=== PATIENT | female | born 1960 | race African-American/Black ===

== ENCOUNTER 2021-12-20 13:30 | Emergency (ER) | payer OTHER, SELFPAY ==
[2021-12-20 13:42] VITALS: BP 140/84; PULSE 75; RESP 18; TEMP 36.4; O2SAT 100
--- NOTE | 2021-12-20 13:42 | ED.URI ---
HPI - URI/Sore Throat General Chief Complaint: Upper Respiratory Infection Stated Complaint: Ears Irritation, Headache Time Seen by Provider: 12/20/21 13:43 Source: patient and RN notes reviewed Mode of arrival: ambulatory Limitations: no limitations History of Present Illness HPI Narrative: 61-year-old female presents to the [facility] with 1 week of a frontal headache, nasal congestion, bilateral ear pain/pressure. Has tried Coricidin HBP, Vicks, DayQuil and NyQuil with no relief the. Skin tears. No cough or chest pain. Denies Abdominal pain. Related Data Home Medications Medication Instructions Recorded Confirmed clonidine HCl 0.3 mg tablet 0.3 mg PO BID 12/20/21 12/20/21 lisinopril 20 2 tablet PO DAILY 12/20/21 12/20/21 mg-hydrochlorothiazide 12.5 mg tablet metoprolol succinate 50 mg 50 mg PO DAILY 12/20/21 12/20/21 tablet,extended release 24 hr Allergies Allergy/AdvReac Type Severity Reaction Status Date / Time Sulfa (Sulfonamide Allergy Mild Other Verified 12/20/21 13:53 Antibiotics) Review of Systems Review of Systems: All systems reviewed & are unremarkable except as noted in HPI and below Constitutional: Constitutional: Reports no additional constitutional complaints, Denies chills and Denies fever(s) Eyes: Eyes: Reports no additional eye complaints ENT: Reports as per HPI Cardiovascular: Cardiovascular: Reports no additional cardiovascular complaints Respiratory: Respiratory: Reports no additional respiratory complaints Gastrointestinal: Gastrointestinal: Reports no additional gastrointestinal complaints Musculoskeletal: Musculoskeletal: Reports no additional musculoskeletal complaints Integumentary/Breasts: Skin/Breast: Reports system reviewed and no additional complaints, except as docu Neurologic: Reports system reviewed and no additional complaints, except as documented Psychiatric: Psychiatric: Reports no additional psychiatric complaints Allergic/Immunologic: Allergic/Immunologic: Reports no additional allergic/immunologic complaints PMFSH Past Medical History Medical History (Updated 12/21/21 @ 11:07 by Veronica Ibarra APRN) History of high blood pressure Comments At the time of my signature, I reviewed and agree with the nursing past medical, surgical, social, and family history. There is no relevant family history pertinent to the patient complaint. Exam Const: General: healthy appearing, no acute distress, alert and well nourished Nutritional Appearance: well nourished Orientation/consciousness: patient oriented x3 Limitations: no limitations HENMT: Head: normal to inspection Ears: external ears normal, EAC's normal and TM abnormal bulging bilateral and with fluid behind the TM bilateral; not erythematous and not perforated Face/Nose/Sinus: Normal external nose present and Normal nares present Face and sinus: normal facial exam Mouth: Yes Normal oral and palatal mucosa present, Yes lip normal and Yes moist mucous membranes Teeth and gingiva: dentition normal Throat: posterior oropharynx normal and uvula midline Eyes: General: appearance normal, both eyes and all related structures Conjunctivae: conjunctivae normal Pupils: Equal, round and reactive pupils present Neck: Neck: normal visual inspection, no lymphadenopathy and no meningeal signs Chest: Chest palpation & inspection: normal inspection of the chest Resp: Effort & Inspection: normal respiratory effort and no use of accessory muscles Auscultation: clear to auscultation bilaterally, no crackles, no rales, no rhonchi and no wheezes Cardio: Rate: regular rate Rhythm: regular rhythm Skin: General skin exam: normal color Rashes: no rashes Wounds: no wounds Neuro: General: patient oriented x3, moves all extremities, no meningeal signs and no focal motor deficits Cranial nerves: Yes Equal, round and reactive pupils present Speech: normal speech Gait exam (Neuro): Normal gait present Extrem:
== END 2021-12-20 14:00 | disposition home or self-care (01) ==
PROVIDERS: Emergency Provider Nurse Practitioner; PCP Internal Medicine
DX: H65.03 Acute serous otitis media, bilateral (principal); J06.9 Acute upper respiratory infection, unspecified; I10 Essential (primary) hypertension
CPT/HCPCS: 99213; G0463

== ENCOUNTER 2024-01-16 12:54 | Emergency (ER) | payer BC, SELFPAY ==
--- NOTE | ~2024-01-16 | XR_ITS ---
EXAMINATION: XR hand RT min 3V DATE: 01/16/2024 13:23 INDICATION: Right hand fifth digit injury and pain. TECHNIQUE: 3 views of right hand were obtained. COMPARISON: None. FINDINGS: Alignment is normal. No fracture. There is mild osteoarthritis of many of the metacarpophal angeal joints and interphalangeal joints. There is severe osteoarthritis of first interphalangeal caty nt and third-fifth distal interphalangeal joints and moderate osteoarthritis of second distal interph alangeal joint. IMPRESSION: 1. Polyarticular osteoarthritis. Reviewed, dictated and finalized at location A. [employer]
[2024-01-16 13:07] VITALS: BP 151/92; PULSE 74; RESP 19; TEMP 36.5; O2SAT 97
--- NOTE | 2024-01-16 13:17 | ED.UPPEXIN ---
HPI - Extremity Injury (Upper) General Chief Complaint: Extremity Injury, Upper Stated Complaint: right pinky finger injury Time Seen by Provider: 01/16/24 14:08 Source: patient, RN notes reviewed and old records reviewed Mode of arrival: ambulatory Limitations: no limitations History of Present Illness HPI narrative: Patient presents with complaints of right 5th finger pain for 1-2 weeks. She reports that she fell on to the outstretched finger and hyperextended it, has had pain ever since. She has been taking Tylenol Arthritis, meloxicam and gabapentin as usual for her pain. She denies other injury and trauma. She retains full range of motion of the affected digit. She voices no other concerns or complaints at this time Related Data Home Medications Medication Instructions Recorded Confirmed clonidine HCl 0.3 mg tablet 0.3 mg PO BID 12/20/21 01/16/24 lisinopril 20 2 tablet PO DAILY 12/20/21 01/16/24 mg-hydrochlorothiazide 12.5 mg tablet metoprolol succinate 50 mg 50 mg PO DAILY 12/20/21 01/16/24 tablet,extended release 24 hr amlodipine 5 mg tablet 5 mg PO DAILY 01/16/24 01/16/24 gabapentin 300 mg capsule 300 mg PO BID 01/16/24 01/16/24 meloxicam 15 mg tablet 15 mg PO DAILY 01/16/24 01/16/24 rosuvastatin 10 mg tablet 50 mg PO DAILY 01/16/24 01/16/24 Allergies Allergy/AdvReac Type Severity Reaction Status Date / Time Sulfa (Sulfonamide Allergy Mild Other Verified 01/16/24 13:18 Antibiotics) Review of Systems Review of Systems: All systems reviewed & are unremarkable except as noted in HPI and below Constitutional: Constitutional: Reports no additional constitutional complaints ENT: Reports system reviewed and no additional complaints, except as documented Cardiovascular: Cardiovascular: Reports no additional cardiovascular complaints Respiratory: Respiratory: Reports no additional respiratory complaints Gastrointestinal: Gastrointestinal: Reports no additional gastrointestinal complaints Musculoskeletal: Musculoskeletal: Reports no additional musculoskeletal complaints and Reports as per HPI [facility] Past Medical History Medical History History of high blood pressure Comments At the time of my signature, I reviewed and agree with the nursing past medical, surgical, social, and family history. There is no relevant family history pertinent to the patient complaint. Exam Const: General: cooperative, no acute distress, alert and awake Orientation/consciousness: oriented to person, oriented to place and oriented to time HENMT: Head: normal to inspection Resp: Effort & Inspection: normal respiratory effort and able to speak in complete sentences Auscultation: clear to auscultation bilaterally, no crackles, no rales, no rhonchi and no wheezes Cardio: Palpation: normal PMI Rate: regular rate Rhythm: regular rhythm Heart sounds: S1 normal heart sound present and S2 normal heart sound present Neuro: General: oriented to person, oriented to place and oriented to time Cranial nerves: Yes CN's II-XII intact bilaterally Extrem: Right upper extremity: Extremity exam: right hand normal to inspection, normal capillary refill, neuromotor exam normal, neurosensory exam abnormal and tenderness of the 5th digit Psych: Appearance: grossly normal Thought process: Normal thought process present Insight: Good insight present (Psych) Judgement: Good judgement present (Psych) Course Course Level of Care: Express Care Visit Vital Signs Vital signs: Vital Signs Temperature 97.7 F 01/16/24 13:07 Pulse Rate 74 01/16/24 13:07 Respiratory Rate 19 01/16/24 13:07 Blood Pressure 151/92 H 01/16/24 13:07 Pulse Oximetry 97 01/16/24 13:07 Oxygen Delivery Room Air 01/16/24 13:07 Temperature 97.7 F 01/16/24 13:07 Pulse Rate 74 01/16/24 13:07 Respiratory Rate 19 01/16/24 13:07 Blood Pressure 151/92 H 01/16/24 13:07 Pulse Oximetry 97 01/16/24 13:07 Oxygen Delivery Room Air 01/16/24 13:07 Reviewed MDM - Extremity Injury (Upper) MDM Narrative Medical decision making narrative: Patient with history of injury to right 5th finger, x-ray shows arthritis with no acute process. Patient already taking appropriate medications. She is advised to follow with primary care provider. Emergency department for new or worse symptoms. Discharge instructions reviewed with patient, as well as provided in writing per nursing staff. The instructions also include specific and strict return/GO TO THE ER as well as f/u information. All questions have been answered, and the patient deny any further questions with discharge and discharge plan. Some parts of this dictation were generated by voice recognition software and may contain typographical and/or grammatical inaccuracies. Differential Diagnosis Differential diagnosis: Likely sprain and strain of wrist, finger sprain and fracture of hand Medical Records Attestation: I reviewed the patient's medical records. Imaging Data Attestation: I personally reviewed and interpreted this imaging study as follows: My impression: no acute findings Radiologist's impression: [facility] [address] [place] [address] XRay Report Signed Patient: Pedro Madrigal : 1960 MR#: [id number] Age: 63 Acct:[id number] Loc: [facility] ADM Date: 01/16/24Attending Dr: Ordering Physician: Ashlie Gonzalez FNP Date of Service: 01/16/24 Procedure(s): XR hand RT min 3V Accession Number(s): [id number] cc: Ashlie Gonzalez FNP; Ranjana, Dex MESSER~ EXAMINATION: XR hand RT min 3V DATE: 01/16/2024 13:23 INDICATION: Right hand fifth digit injury and pain. TECHNIQUE: 3 views of right hand were obtained. COMPARISON: None. FINDINGS: Alignment is normal. No fracture. There is mild osteoarthritis of many of the metacarpophalangeal joints and interphalangeal joints. There is severe osteoarthritis of first interphalangeal joint and third-fifth distal interphalangeal joints and moderate osteoarthritis of second distal interphalangeal joint. IMPRESSION: 1. Polyarticular osteoarthritis. Reviewed, dictated and finalized at location A. [employer] Dictated By: Morris Chris MD 01/16/24 1325 Signed By: <Electronically signed by Morris Chris MD in OV> Discharge Plan Discharge Clinical Impression: Finger pain, right Patient Disposition: Home, Self-Care Condition: Stable Instructions: Antibiotic Form, P.R.I.C.E. Treatment (ED) Additional Instructions: Take medications as prescribed. Follow with primary care provider. Emergency department for new or worse symptoms Prescriptions: No Action meloxicam 15 mg tablet 15 mg PO DAILY amlodipine 5 mg tablet 5 mg PO DAILY gabapentin 300 mg capsule 300 mg PO BID rosuvastatin 10 mg tablet 50 mg PO DAILY lisinopril-hydrochlorothiazide 20-12.5 mg tablet 2 tablet PO DAILY metoprolol succinate 50 mg tablet extended release 24 hr 50 mg PO DAILY clonidine HCl 0.3 mg tablet 0.3 mg PO BID loratadine 10 mg tablet 10 mg PO DAILY Qty: 30 0RF Flonase Sensimist 27.5 mcg/actuation spray,suspension 2 spray intranasal DAILY Qty: 5.9 0RF Rx Instructions: into each nostril Follow-up/Referrals: Ranjana,MD Dex [Primary Care Provider] - 2 Weeks Time of Disposition: 14:22
== END 2024-01-16 14:28 | disposition home or self-care (01) ==
PROVIDERS: Emergency Provider Nurse Practitioner Family; PCP Internal Medicine
DX: M79.644 Pain in right finger(s) (principal); I10 Essential (primary) hypertension
CPT/HCPCS: 73130; 99213; G0463